=== PATIENT | male | born 1960 | race African-American/Black ===

== ENCOUNTER 2017-01-30 14:54 | Emergency (ER) | payer SELFPAY | END 2017-01-30 16:37 | disposition home or self-care (01) | LOC: D.ER 14:54 | DX: I10 Essential (primary) hypertension (principal); F17.200 Nicotine dependence, unspecified, uncomplicated ==

== ENCOUNTER 2017-02-28 14:07 | Emergency (ER) | payer MEDICAID | END 2017-02-28 15:59 | disposition home or self-care (01) | LOC: D.ER 14:07 | DX: S91.111D Laceration without foreign body of right great toe without damage to nail, subsequent encounter (principal); X58.XXXD Exposure to other specified factors, subsequent encounter; Y92.89 Other specified places as the place of occurrence of the external cause; Z48.02 Encounter for removal of sutures; I10 Essential (primary) hypertension ==